=== PATIENT | female | born 1985 | race Caucasian/White ===

== ENCOUNTER 2017-02-16 12:57 | Emergency (ER) | payer SELFPAY ==
[~2017-02-16] VITALS: Ht 157.5 cm; Wt 54.0 kg
[2017-02-16] MEDS ORDERED: ONDANSETRON HCL 4MG/2ML VIAL IV STA (13:51)
[2017-02-16] MEDS ORDERED: SODIUM CHLORIDE 0.9% 1,000 ML IV ONE ×2 (13:51→16:15)
[2017-02-16] MEDS ORDERED: MECLIZINE 25MG TABLET PO ONE (14:00)
[2017-02-16 14:10] LABS: BASOPHILS % 0.4 % (0.0-2.0); EOSINOPHILS % 3.5 % (0.0-5.0); HEMATOCRIT. 39.4 % (36.0-48.0); HEMOGLOBIN. 13.5 g/dL (12.0-16.0); LYMPHOCYTES % 17.5 % (20.0-50.0); MEAN CORPUSCULAR HEMOGLOBIN 29.4 pg (28.0-32.0); MONOCYTES % 4.2 % (2.0-8.0); NEUTROPHILS % 74.4 % (40.0-76.0); PLATELET 328 x1000/uL (130-400); RED BLOOD CELL COUNT 4.58 mill/uL (4.2-5.4); RED CELL DISTRIBUTION WIDTH 12.2 % (11.6-14.6)
[2017-02-16 14:15] LABS: PROTHROMBIN TIME 10.1 sec (9.4-11.6)
[2017-02-16 14:22] LABS: CARBON DIOXIDE 25 mEq/L (21-32); CHLORIDE 107 mEq/L (98-107)
[2017-02-16] MEDS ORDERED: POTASSIUM CHLORIDE 20MEQ TABLET SR PO ONE (15:45)
[2017-02-16 16:18] LABS: CLARITY URINE CLEAR (CLEAR); COLOR URINE YELLOW (YELLOW); GLUCOSE URINE NEGATIVE (NEGATIVE); KETONES URINE 1+ (NEGATIVE); LEUKOCYTE ESTERASE URINE TRACE (NEGATIVE); NITRITE URINE NEGATIVE (NEGATIVE); OCCULT BLOOD URINE 1+ (NEGATIVE); PH URINE 6.5 (4.5-8.0); PROTEIN URINE NEGATIVE (NEGATIVE); SPECIFIC GRAVITY URINE 1.011 (1.005-1.030); UROBILINOGEN URINE 0.2 E.U./dL (0.2-1.0)
[2017-02-16 18:00] VITALS: BP 104/76
== END 2017-02-16 18:20 | disposition home or self-care (01) ==
LOC: ER 13:28
DX: R42 Dizziness and giddiness (principal); R55 Syncope and collapse
CPT/HCPCS: 36415; 80053; 81001; 81025; 85025; 85610; 93005; 96361; 96374; 99285; J2405; J7030; Z7610; J8597

== ENCOUNTER 2018-03-09 12:47 | Emergency (ER) | payer MEDICAID ==
[~2018-03-09] VITALS: Ht 157.5 cm; Wt 59.0 kg
[2018-03-09] MEDS ORDERED: SODIUM CHLORIDE 0.9% 1,000 ML IV ONE (13:34)
[2018-03-09 14:42] LABS: BASOPHILS % 0.4 % (0.0-2.0); EOSINOPHILS % 2.3 % (0.0-5.0); HEMATOCRIT. 43.4 % (36.0-48.0); HEMOGLOBIN. 14.9 g/dL (12.0-16.0); MEAN CORPUSCULAR HEMOGLOBIN 30.3 pg (28.0-32.0); MEAN CORPUSCULAR VOLUME 88.5 fL (81.0-99.0); MEAN PLATELET VOLUME 8.2 fl (7.4-10.4); MONOCYTES % 4.8 % (2.0-8.0); NEUTROPHILS % 66.5 % (40.0-76.0); PLATELET 398 x1000/uL (130-400); RED CELL DISTRIBUTION WIDTH 12.5 % (11.6-14.6)
[2018-03-09 14:46] LABS: PROTHROMBIN TIME 9.8 sec (9.1-11.1)
[2018-03-09 14:47] LABS: CHLORIDE 107 mEq/L (98-107)
[2018-03-09 14:49] LABS: HCG SCREEN NEGATIVE
[2018-03-09 14:52] LABS: ETHANOL BLOOD < 10 mg/dL
[2018-03-09 15:38] LABS: CLARITY URINE CLEAR (CLEAR); COLOR URINE YELLOW (YELLOW); KETONES URINE NEGATIVE (NEGATIVE); LEUKOCYTE ESTERASE URINE NEGATIVE (NEGATIVE); NITRITE URINE NEGATIVE (NEGATIVE); OCCULT BLOOD URINE 2+ (NEGATIVE); PROTEIN URINE NEGATIVE (NEGATIVE); SPECIFIC GRAVITY URINE 1.017 (1.005-1.030); UROBILINOGEN URINE 0.2 E.U./dL (0.2-1.0)
[2018-03-09 16:05] LABS: *AMPHETAMINES SCREEN URINE NEGATIVE (NEGATIVE); *BARBITURATES SCREEN URINE NEGATIVE (NEGATIVE); *BENZODIAZEPINES SCREEN URINE NEGATIVE (NEGATIVE); *COCAINE SCREEN URINE NEGATIVE (NEGATIVE)
[2018-03-09 16:06] LABS: CANNABINOID URINE SCREEN NEGATIVE (NEGATIVE); METHADONE URINE SCREEN NEGATIVE (NEGATIVE); OPIATES URINE SCREEN NEGATIVE (NEGATIVE); PHENCYCLIDINE URINE SCREEN NEGATIVE (NEGATIVE)
[2018-03-09 16:30] VITALS: BP 127/83
== END 2018-03-09 16:45 | disposition home or self-care (01) ==
LOC: ER 12:47
DX: R51 Headache (principal); R07.9 Chest pain, unspecified; Z98.890 Other specified postprocedural states
CPT/HCPCS: 36415; 71045; 80053; 80305; 81003; 81025; 83690; 84484; 84703; 85025; 85610; 93005; 99284; G0482; J7030

== ENCOUNTER 2018-06-17 20:39 | Emergency (ER) | payer MEDICAID ==
[~2018-06-17] VITALS: Ht 160 cm; Wt 61.0 kg
[2018-06-17] MEDS ORDERED: IBUPROFEN 600MG TABLET PO ONE (23:15)
[2018-06-17 23:44] VITALS: BP 120/65
== END 2018-06-17 23:46 | disposition home or self-care (01) ==
LOC: ER 20:39
DX: M79.671 Pain in right foot (principal); Z98.890 Other specified postprocedural states
CPT/HCPCS: 81025; 99283

== ENCOUNTER 2023-06-17 19:30 | Emergency (ER) | payer MEDICAID, OTHER ==
[~2023-06-17] VITALS: Ht 160 cm; Wt 54.0 kg
[2023-06-17 19:52] VITALS: O2SAT 100
[2023-06-17] MEDS ORDERED: ACETAMINOPHEN 500MG TABLET PO ONE (20:00)
[2023-06-17 20:23] LABS: CLARITY URINE CLEAR (CLEAR); COLOR URINE YELLOW (YELLOW); GLUCOSE URINE NEGATIVE (NEGATIVE); KETONES URINE TRACE (NEGATIVE); LEUKOCYTE ESTERASE URINE NEGATIVE (NEGATIVE); NITRITE URINE NEGATIVE (NEGATIVE); OCCULT BLOOD URINE 1+ (NEGATIVE); PROTEIN URINE NEGATIVE (NEGATIVE); SPECIFIC GRAVITY URINE 1.019 (1.005-1.030); UROBILINOGEN URINE 0.2 E.U./dL (0.2-1.0)
[2023-06-17 20:44] LABS: HCG SCREEN NEGATIVE
[2023-06-17 20:50] LABS: BACTERIA URINE 1+; YEAST URINE FEW
[2023-06-17 20:51] LABS: SQUAMOUS EPITHELIAL CELL URINE 1+ /lpf (RARE/1+); WBC URINE 0-2 /hpf (0-2)
[2023-06-17 21:47] VITALS: BP 124/92; PULSE 86; RESP 18
[2023-06-17] MEDS: KETOROLAC 30MG/ML VIAL IM ONE (21:47)
[2023-06-17 22:00] VITALS: TEMP 98.5
[2023-06-17] MEDS: ACETAMINOPHEN 500MG TABLET PO NR (22:00)
[2023-06-17] MEDS: CYCLOBENZAPRINE 10MG TABLET PO ONE (22:30)
[2023-06-17] MEDS ORDERED: LIDO700A15 TP (23:29)
[2023-06-17] MEDS ORDERED: IBUP-2029 MT (23:29)
[2023-06-17] MEDS ORDERED: METH-653 MT (23:29)
== END 2023-06-18 00:04 | disposition home or self-care (01) ==
LOC: ER 19:30
DX: R10.9 Unspecified abdominal pain (principal); R31.9 Hematuria, unspecified; Z98.890 Other specified postprocedural states
CPT/HCPCS: 99285; 74176; 81003; 81025; 84703; 96372; J1885